=== PATIENT | male | born 1970 | race Caucasian/White ===

== ENCOUNTER 2017-03-19 07:08 | Day surgery (SDC) | payer BC ==
[~2017-03-19] VITALS: Ht 172.7 cm; Wt 89.9 kg
[2017-03-19 07:52] VITALS: BP 134/92; PULSE 81; TEMP 98
[2017-03-19 09:32] VITALS: BP 120/74; PULSE 89; TEMP 97.6
[2017-03-19 09:47] VITALS: BP 119/66; PULSE 82
[2017-03-19] MEDS ORDERED: MOTRIN 600600 MG/TAB PO (09:47)
[2017-03-19] MEDS ORDERED: COLACE 100100 MG/CAP PO (09:47)
[2017-03-19] MEDS ORDERED: NORCO 325 MG-51 TAB PO (09:48)
[2017-03-19 10:02] VITALS: BP 133/68; PULSE 73
[2017-03-19 10:17] VITALS: BP 120/70; PULSE 73
== END 2017-03-19 10:50 | disposition home or self-care (01) ==
LOC: SDCO 07:08
DX: K42.9 Umbilical hernia without obstruction or gangrene (principal); Z88.6 Allergy status to analgesic agent
CPT/HCPCS: C1781; J0690; J2704; J7120